=== PATIENT | female | born 1990 | race Caucasian/White ===

== ENCOUNTER 2020-02-04 19:50 | Emergency (ER) | payer SELFPAY ==
[~2020-02-04] VITALS: Ht 144.8 cm; Wt 68.0 kg
[2020-02-04 20:20] VITALS: BP 146/87
--- NOTE | 2020-02-04 20:25 | NUR ---
PT AMBULATED TO LOBBY TO A/W BED. URINE COLLECTED
[2020-02-04 20:31] LABS: BASOPHILS # (AUTO) 0.1 K/uL (0.00-0.22); BASOPHILS % (AUTO) 0.8 % (0.0-2.0); EOSINOPHILS % (AUTO) 0.4 % (0.0-4.0); LYMPHOCYTES # (AUTO) 4.6 K/uL (2.5-16.5); MEAN CORPUSCULAR HEMOGLOBIN 32 pg (27-31); MEAN CORPUSCULAR HGB CONC 33 g/dL (33-37); MEAN CORPUSCULAR VOLUME 96.3 fL (80-94); MONOCYTES # (AUTO) 0.5 K/uL (0.8-1.0); MONOCYTES % (AUTO) 4.3 % (1.7-9.3); NEUTROPHILS # (AUTO) 7.4 K/uL (1.8-7.7); NEUTROPHILS % (AUTO) 58.5 % (42.2-75.2); PLATELET COUNT (AUTO) 314 K/uL (140-450); RED BLOOD CELL COUNT(AUTO) 4.36 MIL/uL (4.20-5.40); RED CELL DISTRIBUTION WIDTH 13.4 % (11.6-13.7); WHITE BLOOD COUNT (AUTO) 12.7 K/uL (4.8-10.8)
--- NOTE | 2020-02-04 20:50 | NUR ---
PT TAKEN TO US VIA W/C
[2020-02-04 21:03] LABS: APPEARANCE,URINE CLEAR (CLEAR); BILIRUBIN,URINE NEGATIVE (NEGATIVE); BLOOD, URINE 3+ (NEGATIVE); COLOR,URINE YELLOW (YELLOW); LEUKOCYTE ESTERASE ,URINE TRACE (NEGATIVE); NITRITE, URINE NEGATIVE (NEGATIVE); UGLUCOSE NEGATIVE (NEGATIVE)
--- NOTE | 2020-02-04 21:33 | NUR ---
PT AMBULATED TO [facility] WITH STEADY GAIT
[2020-02-04 21:46] LABS: ANION GAP 11.4 (8-16); CARBON DIOXIDE 24.5 mmol/L (21-32); CREATININE 0.8 mg/dL (0.6-1.3); POTASSIUM 3.9 mmol/L (3.5-5.1)
--- NOTE | 2020-02-04 22:06 | NUR ---
ERMD BEDSIDE EVALUATING PT
[2020-02-04 22:25] VITALS: BP 146/87
--- NOTE | 2020-02-04 22:25 | NUR ---
29 Y/O FEMALE PRESENTS TO ER WITH C/O VAGINAL BLEEDING, AND BILATERAL LOWER ABDOMINAL PAIN X 3 DAYS. 11/08 PAIN. LMP 11/15/19 12 WEEKS . DENIES TTP TO BILATERAL LOWER ABDOMEN, NO RADIATION TO OTHER REGION OF BODY. DENIES SOB, COUGH, NAUSEA, VOMITING, DIARRHEA. VSS, R/R EQUAL AND UNLABORED. SIDE RAIL X1, BED IN LOW POSITION, WILL CONTINUE TO MONITOR. NKDA DENIES PMH
== END 2020-02-04 22:25 | disposition home or self-care (01) ==
LOC: MED 19:50
DX: O23.41 Unspecified infection of urinary tract in pregnancy, first trimester (principal); O46.8X1 Other antepartum hemorrhage, first trimester
CPT/HCPCS: 36415; 76801; 80048; 81001; 84702; 85025; 86900; 86901; 87086; 93976; 99284; Q0092

== ENCOUNTER 2020-02-07 18:11 | Emergency (ER) | payer SELFPAY ==
[~2020-02-07] VITALS: Ht 144.8 cm; Wt 69.1 kg
[2020-02-07 18:37] VITALS: BP 152/99
--- NOTE | 2020-02-07 18:42 | NUR ---
29 Y/O F C/C VAGINAL BLEEDING SINCE 1600 HOURS TODAY; DARK BLOOD WITH BLOOD CLOTS, NO TISSUE NOTED. PER PT FURTHER COMPLAINTS OF LOWER ABDOMINAL PAIN, 6/10, SHARP SENSATION, NON RADIATING SINCE 1200 HOURS TODAY. PT CURRENTLY 3 MONTHS , FIRST . HAS NOT TAKEN OTC RX. PT NKA. NO HX. NO RX. NO NVD. SIDE RAIL X1.
[2020-02-07 19:03] LABS: BASOPHILS # (AUTO) 0.1 K/uL (0.00-0.22); BASOPHILS % (AUTO) 0.6 % (0.0-2.0); EOSINOPHILS # (AUTO) 0.1 K/uL (0-0.4); EOSINOPHILS % (AUTO) 0.5 % (0.0-4.0); HEMATOCRIT 38.5 % (36-48); LYMPHOCYTES % (AUTO) 35.1 % (20.5-51.1); MEAN CORPUSCULAR HEMOGLOBIN 32 pg (27-31); MEAN CORPUSCULAR HGB CONC 34 g/dL (33-37); MEAN CORPUSCULAR VOLUME 95.2 fL (80-94); MONOCYTES # (AUTO) 0.6 K/uL (0.8-1.0); MONOCYTES % (AUTO) 4.9 % (1.7-9.3); NEUTROPHILS # (AUTO) 6.7 K/uL (1.8-7.7); NEUTROPHILS % (AUTO) 58.9 % (42.2-75.2); PLATELET COUNT (AUTO) 298 K/uL (140-450); RED BLOOD CELL COUNT(AUTO) 4.05 MIL/uL (4.20-5.40); RED CELL DISTRIBUTION WIDTH 13.5 % (11.6-13.7); WHITE BLOOD COUNT (AUTO) 11.4 K/uL (4.8-10.8)
--- NOTE | 2020-02-07 19:22 | NUR ---
REPORT GIVEN TO JANNET GARCIA FOR CONTINUITY OF CARE
[2020-02-07 21:24] VITALS: BP 152/99
== END 2020-02-07 21:24 | disposition home or self-care (01) ==
LOC: MED 18:11
DX: O20.0 Threatened abortion (principal); Z3A.11 11 weeks gestation of pregnancy
CPT/HCPCS: 36415; 84702; 85025; 99283

== ENCOUNTER 2020-06-25 20:10 | Observation (INO) | payer OTHER, SELFPAY ==
[~2020-06-25] VITALS: Ht 149.9 cm; Wt 71.2 kg
[2020-06-25] MEDS ORDERED: PROMETHAZINE 25 MG/ML VIAL IVP PRN (20:40)
[2020-06-25] MEDS ORDERED: ONDANSETRON 4 MG/2 ML VIAL IVP PRN (20:40)
[2020-06-25] MEDS ORDERED: MORPHINE SULFATE 5 MG/ML VIAL IVP PRN (20:40)
[2020-06-25] MEDS ORDERED: NACL 0.9% 1,000 ML IV SCH (20:55)
[2020-06-25] MEDS ORDERED: CITRIC ACID/SODIUM CITRATE 30 ML UDC PO ONE (21:00)
[2020-06-25] MEDS ORDERED: MORPHINE SULFATE 10 MG/ML VIAL ONE (21:21)
[2020-06-25 21:50] LABS: BILIRUBIN,URINE NEGATIVE (NEGATIVE); BLOOD, URINE NEGATIVE (NEGATIVE); COLOR,URINE YELLOW (YELLOW); LEUKOCYTE ESTERASE ,URINE 2+ (NEGATIVE); NITRITE, URINE NEGATIVE (NEGATIVE); UGLUCOSE NEGATIVE (NEGATIVE)
[2020-06-25 21:52] LABS: APPEARANCE,URINE HAZY (CLEAR)
[2020-06-25 22:08] LABS: RBC,URINE NONE SEEN /HPF (0-5)
[2020-06-25] MEDS ORDERED: TERBUTALINE 1 MG/ML VIAL SUBQ SCH (22:40)
[2020-06-25] MEDS ORDERED: TERBUTALINE 1 MG/ML VIAL SUBQ ONE (22:47)
[2020-06-25] MEDS ORDERED: cefTRIAXone 1,000 MG VIAL ONE (22:48)
[2020-06-25 23:21] VITALS: BP 126/67
--- NOTE | 2020-06-26 07:49 | NUR ---
PATIENT HAS BEEN SCREENED AND CATEGORIZED LOW NUTRITION RISK. PATIENT WILL BE SEEN WITHIN 7 DAYS OF ADMISSION. 07/02/2020 RITU TRUJILLO MBA, RD
[2020-06-26] MEDS ORDERED: cefTRIAXone 2,000 MG in DEXTROSE 5% 100 ML IV SCH (09:00)
== END 2020-06-26 10:15 | disposition home or self-care (01) ==
LOC: MFCC 20:10
PROVIDERS: ADMIT Obstetrics & Gynecology; ATTEND Obstetrics & Gynecology
DX: O99.613 Diseases of the digestive system complicating pregnancy, third trimester (principal); Z20.828 Contact with and (suspected) exposure to other viral communicable diseases; O26.893 Other specified pregnancy related conditions, third trimester; R10.11 Right upper quadrant pain; Z3A.32 32 weeks gestation of pregnancy
CPT/HCPCS: 59025; 76705; 81001; 87086; 87426; 96361; 96372; 96374; 96375; G0378; J0696; J2270; J2550; J3105; J7060

== ENCOUNTER 2020-06-27 13:14 | Observation (INO) | payer OTHER ==
[~2020-06-27] VITALS: Ht 149.9 cm; Wt 71.2 kg
[2020-06-27] MEDS ORDERED: LACTATED RINGERS 1,000 ML IV SCH (13:30)
[2020-06-27] MEDS ORDERED: PROMETHAZINE 25 MG/ML VIAL IVP SCH (13:35)
[2020-06-27] MEDS ORDERED: MORPHINE SULFATE 2 MG/ML SYR IVP SCH (13:36)
[2020-06-27] MEDS ORDERED: MORPHINE SULFATE 10 MG/ML VIAL ONE (13:48)
[2020-06-27 14:12] VITALS: BP 132/80
[2020-06-27] MEDS ORDERED: TERBUTALINE 1 MG/ML VIAL SUBQ SCH (15:25)
== END 2020-06-27 17:20 | disposition home or self-care (01) ==
LOC: MFCC 13:14
PROVIDERS: ADMIT Obstetrics & Gynecology; ATTEND Obstetrics & Gynecology
DX: O26.893 Other specified pregnancy related conditions, third trimester (principal); R10.9 Unspecified abdominal pain; Z3A.32 32 weeks gestation of pregnancy
CPT/HCPCS: 59025; 96372; 96374; G0378; J2270; J2550; J3105

== ENCOUNTER 2020-07-12 22:34 | Observation (INO) | payer OTHER ==
[~2020-07-12] VITALS: Ht 149.9 cm; Wt 72.6 kg
[2020-07-12 23:09] VITALS: BP 115/74
[2020-07-12] MEDS ORDERED: CITRIC ACID/SODIUM CITRATE 30 ML UDC PO SCH (23:40)
[2020-07-12] MEDS ORDERED: ALUMINUM HYD/MAG/SIMETHICONE 30 ML UDC PO PRN (23:40)
[2020-07-12] MEDS ORDERED: ALUMINUM HYD/MAG/SIMETHICONE 30 ML UDC ONE (23:43)
[2020-07-13] MEDS ORDERED: CITRIC ACID/SODIUM CITRATE 30 ML UDC ONE (00:19)
== END 2020-07-13 00:40 | disposition home or self-care (01) ==
LOC: MLD 22:34
PROVIDERS: ADMIT Obstetrics & Gynecology; ATTEND Obstetrics & Gynecology
DX: O26.893 Other specified pregnancy related conditions, third trimester (principal); R10.13 Epigastric pain; Z3A.34 34 weeks gestation of pregnancy
CPT/HCPCS: 59025; 81000; G0378

== ENCOUNTER 2020-08-06 20:00 | Inpatient (IN) | payer OTHER, SELFPAY ==
[~2020-08-06] VITALS: Ht 149.9 cm; Wt 70.3 kg
[2020-08-06] MEDS ORDERED: CITRIC ACID/SODIUM CITRATE 30 ML UDC PO SCH (20:40)
[2020-08-06] MEDS ORDERED: MISOPROSTOL 25 MCG TAB VG SCH (20:40)
[2020-08-06] MEDS ORDERED: CITRIC ACID/SODIUM CITRATE 30 ML UDC ONE (20:56)
[2020-08-06 21:21] VITALS: BP 142/83
[2020-08-06] MEDS ORDERED: CARBOPROST 250 MCG/ML AMP IM PRN (21:50)
[2020-08-06] MEDS ORDERED: METHYLERGONOVINE 0.2 MG/ML AMP IM PRN (21:50)
[2020-08-06] MEDS ORDERED: LACTATED RINGERS 1,000 ML IV SCH ×2 (21:55→23:10)
[2020-08-06 22:15] LABS: MAGNESIUM 2.4 mg/dL (1.8-2.4)
[2020-08-06 22:16] LABS: APPEARANCE,URINE CLEAR (CLEAR); BILIRUBIN,URINE NEGATIVE (NEGATIVE); BLOOD, URINE NEGATIVE (NEGATIVE); COLOR,URINE YELLOW (YELLOW); LEUKOCYTE ESTERASE ,URINE TRACE (NEGATIVE); NITRITE, URINE NEGATIVE (NEGATIVE); UGLUCOSE NEGATIVE (NEGATIVE)
[2020-08-06 22:17] LABS: ALBUMIN 2.5 g/dL (3.4-5.0); ANION GAP 12.2 (8-16); CREATININE 0.7 mg/dL (0.6-1.3); POTASSIUM 4.2 mmol/L (3.5-5.1); TOTAL BILIRUBIN 0.5 mg/dL (0.0-1.0)
[2020-08-06 22:18] LABS: HEMOGLOBIN 13.6 g/dL (12.0-16.0)
[2020-08-06 22:21] LABS: BASOPHILS % (AUTO) 0.2 % (0.0-2.0); EOSINOPHILS % (AUTO) 0.3 % (0.0-4.0); HEMATOCRIT 39.6 % (36-48); LYMPHOCYTES # (AUTO) 3.3 K/uL (2.5-16.5); MEAN CORPUSCULAR HEMOGLOBIN 33 pg (27-31); MEAN CORPUSCULAR HGB CONC 34 g/dL (33-37); MEAN CORPUSCULAR VOLUME 97.5 fL (80-94); MONOCYTES # (AUTO) 0.8 K/uL (0.8-1.0); NEUTROPHILS # (AUTO) 8.6 K/uL (1.8-7.7); NEUTROPHILS % (AUTO) 67.5 % (42.2-75.2); PLATELET COUNT (AUTO) 227 K/uL (140-450); RED BLOOD CELL COUNT(AUTO) 4.06 MIL/uL (4.20-5.40); RED CELL DISTRIBUTION WIDTH 13.5 % (11.6-13.7); WHITE BLOOD COUNT (AUTO) 12.7 K/uL (4.8-10.8)
[2020-08-06 22:57] LABS: PROTHROMBIN TIME 9.3 secs (10.8-13.4)
[2020-08-07 00:13] LABS: RBC,URINE 0-5 /HPF (0-5)
[2020-08-07] MEDS: MISOPROSTOL 25 MCG TAB VG SCH ×3 (02:07→12:32)
[2020-08-07] MEDS ORDERED: MAG SULF 2000 MG/WATER PREMIX 50 ML IV SCH (02:25)
[2020-08-07] MEDS ORDERED: MAG SULF 20 GM/H2O PREMIX DRIP 500 ML IV ONE (02:32)
[2020-08-07] MEDS ORDERED: MAG SULF 2000 MG/WATER PREMIX 50 ML IV ONE ×2 (02:32→02:36)
--- NOTE | 2020-08-07 07:17 | NUR ---
PATIENT HAS BEEN SCREENED AND CATEGORIZED LOW NUTRITION RISK. PATIENT WILL BE SEEN WITHIN 7 DAYS OF ADMISSION. 08/13/20 RITU TRUJILLO MBA, RD
[2020-08-07] MEDS ORDERED: AMPICILLIN 2,000 MG VIAL ONE (09:46)
[2020-08-07] MEDS ORDERED: AMPICILLIN 2,000 MG in NACL 0.9% MINI-BAG PLUS 100 ML IV SCH (10:00)
[2020-08-07] MEDS ORDERED: AMPICILLIN 1,000 MG VIAL ONE ×3 (13:53→22:45)
[2020-08-07] MEDS: AMPICILLIN 1,000 MG in NACL 0.9% MINI-BAG PLUS 50 ML IV SCH ×2 (13:58→17:56)
[2020-08-07] MEDS: MAG SULF 20 GM/H2O PREMIX DRIP 500 ML IV SCH (14:41)
[2020-08-07] MEDS ORDERED: OXYTOCIN 20 UNITS in LACTATED RINGERS 1,000 ML IV SCH (16:30)
[2020-08-07] MEDS ORDERED: ROPIVACAINE 0.2%/NS PREMIX 0 ML EPI ONE (16:41)
[2020-08-07] MEDS ORDERED: OXYTOCIN 20 UNITS/LR PREMIX 1,000 ML IV ONE (16:51)
[2020-08-07] MEDS ORDERED: ROPIVACAINE 0.2%/NS PREMIX 200 ML EPI ONE (17:01)
[2020-08-08] MEDS: MAG SULF 20 GM/H2O PREMIX DRIP 500 ML IV SCH (01:17)
[2020-08-08] MEDS ORDERED: AMPICILLIN 1,000 MG VIAL ONE ×4 (02:43→10:41)
[2020-08-08] MEDS: AMPICILLIN 1,000 MG in NACL 0.9% MINI-BAG PLUS 50 ML IV SCH ×2 (06:53→10:47)
[2020-08-08] MEDS ORDERED: ROPIVACAINE 0.2%/NS PREMIX 200 ML EPI ONE (07:04)
[2020-08-08] MEDS ORDERED: LABETALOL 100 MG TAB PO SCH (12:00)
[2020-08-08] MEDS ORDERED: LABETALOL 100 MG TAB ONE (12:06)
[2020-08-08] MEDS ORDERED: MISOPROSTOL 200 MCG TAB ONE (14:17)
[2020-08-08] MEDS ORDERED: OXYTOCIN 20 UNITS/LR PREMIX 1,000 ML IV ONE (14:18)
[2020-08-08] MEDS ORDERED: MISOPROSTOL 100 MCG TAB RC SCH (14:30)
[2020-08-08] MEDS ORDERED: TEMAZEPAM 15 MG CAP PO PRN (16:55)
[2020-08-08] MEDS ORDERED: oxyCODONE/APAP 5/325 MG 1 TAB TAB PO PRN (16:55)
[2020-08-08] MEDS ORDERED: MEASLES, MUMPS, AND RUBELLA 1 VIAL SQVAC PRN (16:55)
[2020-08-08] MEDS ORDERED: BENZOCAINE/MENTHOL 20%-0.5% 60 GM CAN TP PRN (16:55)
[2020-08-08] MEDS ORDERED: DOCUSATE SOD/SENNA 50/8.6 MG 1 TAB PO SCH (21:00)
[2020-08-09] MEDS: IBUPROFEN 800 MG TAB PO PRN ×2 (01:47→13:16)
[2020-08-09] MEDS ORDERED: CITRIC ACID/SODIUM CITRATE 30 ML UDC PO SCH (06:05)
[2020-08-09] MEDS ORDERED: CITRIC ACID/SODIUM CITRATE 30 ML UDC ONE (06:08)
[2020-08-09 06:39] LABS: HEMATOCRIT 29.8 % (36-48); HEMOGLOBIN 10.1 g/dL (12.0-16.0)
== END 2020-08-09 19:48 | disposition home or self-care (01) | DRG 560 ==
LOC: OBSVTOIN 20:00 → MLD 20:00 → MFCC 20:43 → MLD 20:51 → MFCC 08-08 16:35
PROVIDERS: ADMIT Obstetrics & Gynecology; ATTEND Obstetrics & Gynecology
PROC: 10D07Z6 Extraction of Products of Conception, Vacuum, Via Natural or Artificial Opening (ICD-10-PCS; principal; 2020-08-08)
PROC: 0W8NXZZ Division of Female Perineum, External Approach (ICD-10-PCS; 2020-08-08)
DX: O14.94 Unspecified pre-eclampsia, complicating childbirth (principal); Z3A.37 37 weeks gestation of pregnancy; Z37.0 Single live birth; O24.429 Gestational diabetes mellitus in childbirth, unspecified control; O66.0 Obstructed labor due to shoulder dystocia; Z20.822 Contact with and (suspected) exposure to COVID-19
CPT/HCPCS: 36415; 51702; 59200; 76815; 80053; 81001; 82310; 82570; 82948; 83735; 84550; 85018; 85025; 85384; 85610; 85730; 86592; 86886; 86900; 86901; 87086; J0290; J2590; J2795; J3475; J7120

== ENCOUNTER 2021-05-10 22:10 | Observation (INO) | payer OTHER, SELFPAY ==
[~2021-05-10] VITALS: Ht 149.9 cm; Wt 70.3 kg
[2021-05-10 23:20] VITALS: BP 132/75
== END 2021-05-10 23:20 | disposition home or self-care (01) ==
LOC: MLD 22:10
PROVIDERS: ADMIT Obstetrics & Gynecology; ATTEND Obstetrics & Gynecology
DX: O26.892 Other specified pregnancy related conditions, second trimester (principal); R10.9 Unspecified abdominal pain; O99.891 Other specified diseases and conditions complicating pregnancy; M54.9 Dorsalgia, unspecified; Z3A.22 22 weeks gestation of pregnancy; Z91.040 Latex allergy status
CPT/HCPCS: 59025; 81000; G0378; G0379

== ENCOUNTER 2021-08-16 17:20 | Observation (INO) | payer OTHER, SELFPAY ==
[~2021-08-16] VITALS: Ht 149.9 cm; Wt 72.6 kg
[2021-08-16] MEDS ORDERED: INSULIN (18:03)
[2021-08-16] MEDS ORDERED: ASPI-1822 PO (18:04)
== END 2021-08-16 19:02 | disposition home or self-care (01) ==
LOC: MFCC 17:20 → MLD 17:50
PROVIDERS: ADMIT Obstetrics & Gynecology; ATTEND Obstetrics & Gynecology
DX: O26.893 Other specified pregnancy related conditions, third trimester (principal); R10.9 Unspecified abdominal pain; Z20.822 Contact with and (suspected) exposure to COVID-19; O24.419 Gestational diabetes mellitus in pregnancy, unspecified control; Z3A.36 36 weeks gestation of pregnancy; Z91.040 Latex allergy status
CPT/HCPCS: 87426; G0378; 59025; 81000

== ENCOUNTER 2021-09-01 05:09 | Inpatient (IN) | payer OTHER, SELFPAY ==
[~2021-09-01] VITALS: Ht 144.8 cm; Wt 75.3 kg
[~2021-09-01 05:09] MED LIST: ASPI-1822 PO; INSULIN
[2021-09-01] MEDS ORDERED: LACTATED RINGERS 1,000 ML IV SCH (05:35)
[2021-09-01] MEDS ORDERED: CITRIC ACID/SODIUM CITRATE 30 ML UDC PO ONE (05:35)
[2021-09-01 05:56] VITALS: BP 121/83
[2021-09-01 06:01] LABS: BASOPHILS # (AUTO) 0.1 K/uL (0.00-0.22); BASOPHILS % (AUTO) 0.8 % (0.0-2.0); EOSINOPHILS # (AUTO) 0.1 K/uL (0-0.4); EOSINOPHILS % (AUTO) 0.6 % (0.0-4.0); HEMATOCRIT 36.7 % (36-48); HEMOGLOBIN 12.6 g/dL (12.0-16.0); LYMPHOCYTES # (AUTO) 3.4 K/uL (2.5-16.5); LYMPHOCYTES % (AUTO) 33.6 % (20.5-51.1); MEAN CORPUSCULAR HEMOGLOBIN 32 pg (27-31); MEAN CORPUSCULAR HGB CONC 34 g/dL (33-37); MEAN CORPUSCULAR VOLUME 92.4 fL (80-94); MONOCYTES # (AUTO) 0.6 K/uL (0.8-1.0); MONOCYTES % (AUTO) 5.6 % (1.7-9.3); NEUTROPHILS % (AUTO) 59.4 % (42.2-75.2); PLATELET COUNT (AUTO) 277 K/uL (140-450); RED BLOOD CELL COUNT(AUTO) 3.97 MIL/uL (4.20-5.40); RED CELL DISTRIBUTION WIDTH 14.3 % (11.6-13.7)
[2021-09-01 06:21] LABS: APPEARANCE,URINE CLEAR (CLEAR); BILIRUBIN,URINE NEGATIVE (NEGATIVE); BLOOD, URINE NEGATIVE (NEGATIVE); COLOR,URINE YELLOW (YELLOW); LEUKOCYTE ESTERASE ,URINE 1+ (NEGATIVE); NITRITE, URINE NEGATIVE (NEGATIVE); PH,URINE 6.5 (5.0-9.0); UGLUCOSE NEGATIVE (NEGATIVE)
[2021-09-01 06:33] LABS: RBC,URINE 0-5 /HPF (0-5)
[2021-09-01 06:47] LABS: ALBUMIN 2.3 g/dL (3.4-5.0); ANION GAP 16.1 (8-16); CARBON DIOXIDE 22.1 mmol/L (21-32); CREATININE 0.5 mg/dL (0.6-1.3); POTASSIUM 4.2 mmol/L (3.5-5.1); TOTAL BILIRUBIN 0.2 mg/dL (0.0-1.0)
[2021-09-01] MEDS ORDERED: MORPHINE PRES FREE 10 MG/10 ML AMP IV ONE (07:31)
--- NOTE | 2021-09-01 09:34 | NUR ---
PATIENT HAS BEEN SCREENED AND CATEGORIZED LOW NUTRITION RISK. PATIENT WILL BE SEEN WITHIN 7 DAYS OF ADMISSION. 09/07/[address]
[2021-09-01] MEDS ORDERED: METOCLOPRAMIDE 10 MG/2 ML INJ VIAL ONE (11:47)
[2021-09-01] MEDS ORDERED: diphenhydrAMINE 50 MG/ML VIAL IVP PRN (12:05)
[2021-09-01] MEDS ORDERED: NALOXONE 0.4 MG/ML VIAL IVP PRN ×2 (12:05)
[2021-09-01] MEDS ORDERED: KETOROLAC 30 MG/ML VIAL IVP PRN (12:05)
[2021-09-01] MEDS ORDERED: OXYTOCIN 20 UNITS in LACTATED RINGERS 1,000 ML IV SCH (12:05)
[2021-09-01] MEDS ORDERED: ONDANSETRON 4 MG/2 ML VIAL IVP PRN (12:05)
[2021-09-01] MEDS ORDERED: BENZOCAINE/MENTHOL 20%-0.5% 60 GM CAN TP PRN (12:55)
[2021-09-01] MEDS ORDERED: OXYTOCIN 10 UNITS/ML VIAL IM PRN (12:55)
[2021-09-01] MEDS ORDERED: MEASLES, MUMPS, AND RUBELLA 1 VIAL SQVAC ONE (12:55)
[2021-09-01] MEDS ORDERED: METHYLERGONOVINE 0.2 MG/ML AMP IM PRN (12:55)
[2021-09-01] MEDS ORDERED: METHYLERGONOVINE 0.2 MG TAB PO PRN (12:55)
[2021-09-01] MEDS ORDERED: OXYTOCIN 20 UNITS/LR PREMIX 1,000 ML IV ONE ×2 (13:16→20:22)
[2021-09-02] MEDS ORDERED: HYDROmorphone 1 MG/ML AMP IVP SCH (02:00)
[2021-09-02] MEDS ORDERED: OXYTOCIN 20 UNITS/LR PREMIX 1,000 ML IV ONE (03:35)
[2021-09-02 09:22] LABS: BASOPHILS % (AUTO) 0.1 % (0.0-2.0); EOSINOPHILS % (AUTO) 0.3 % (0.0-4.0); HEMATOCRIT 27.6 % (36-48); HEMOGLOBIN 9.5 g/dL (12.0-16.0); LYMPHOCYTES # (AUTO) 2.5 K/uL (2.5-16.5); LYMPHOCYTES % (AUTO) 20.9 % (20.5-51.1); MEAN CORPUSCULAR HEMOGLOBIN 32 pg (27-31); MEAN CORPUSCULAR HGB CONC 35 g/dL (33-37); MONOCYTES # (AUTO) 0.7 K/uL (0.8-1.0); MONOCYTES % (AUTO) 5.7 % (1.7-9.3); NEUTROPHILS # (AUTO) 8.7 K/uL (1.8-7.7); PLATELET COUNT (AUTO) 221 K/uL (140-450); RED BLOOD CELL COUNT(AUTO) 2.96 MIL/uL (4.20-5.40); RED CELL DISTRIBUTION WIDTH 14.4 % (11.6-13.7)
[2021-09-02 10:56] LABS: HEPATITIS B SURFACE ANTIGEN NEGATIVE (NEGATIVE)
[2021-09-02] MEDS: IBUPROFEN 800 MG TAB PO PRN (12:49)
[2021-09-02] MEDS ORDERED: POLYETHYLENE GLYCOL 17 GM/PKT PO PRN (14:50)
[2021-09-02] MEDS: DOCUSATE SODIUM 100 MG GELCAP PO PRN (18:15)
[2021-09-02] MEDS: oxyCODONE/APAP 5/325 MG 1 TAB TAB PO PRN (20:34)
[2021-09-02] MEDS ORDERED: CAMERA MC ONE (22:29)
[2021-09-03] MEDS: oxyCODONE/APAP 5/325 MG 1 TAB TAB PO PRN (04:24)
[2021-09-03] MEDS: DOCUSATE SODIUM 100 MG GELCAP PO PRN (08:35)
[2021-09-03] MEDS: IBUPROFEN 800 MG TAB PO PRN (14:08)
== END 2021-09-03 18:00 | disposition home or self-care (01) | DRG 540 ==
LOC: MLD 05:09 → MFCC 14:15
PROVIDERS: ADMIT Obstetrics & Gynecology; ATTEND Obstetrics & Gynecology
PROC: 10D00Z1 Extraction of Products of Conception, Low, Open Approach (ICD-10-PCS; principal; 2021-09-03)
DX: O36.63X0 Maternal care for excessive fetal growth, third trimester, not applicable or unspecified (principal); D62 Acute posthemorrhagic anemia; O24.429 Gestational diabetes mellitus in childbirth, unspecified control; Z20.822 Contact with and (suspected) exposure to COVID-19; Z37.0 Single live birth; Z3A.39 39 weeks gestation of pregnancy; O99.02 Anemia complicating childbirth
CPT/HCPCS: 36415; 51702; 80053; 81001; 82948; 85025; 86592; 86762; 86886; 86900; 86901; 87086; 87340; J0690; J1170; J1885; J2270; J2590; J2765; J7060; J7120

== ENCOUNTER 2023-03-22 02:42 | Inpatient (IN) | payer OTHER ==
[~2023-03-22] VITALS: Ht 144.8 cm; Wt 70.8 kg
[~2023-03-22 02:42] MED LIST changes: -INSULIN
[2023-03-22 03:00] VITALS: PULSE 80; RESP 16; TEMP 96.5; O2SAT 99
[2023-03-22] MEDS ORDERED: ONDANSETRON 4 MG/2 ML VIAL IVP ONE ×2 (04:30→06:25)
[2023-03-22] MEDS ORDERED: FAMOTIDINE 20 MG/2 ML VIAL IVP ONE (04:30)
[2023-03-22] MEDS ORDERED: NACL 0.9% 1,000 ML IV SCH (04:30)
[2023-03-22 05:50] LABS: APPEARANCE,URINE CLEAR (CLEAR); BILIRUBIN,URINE NEGATIVE (NEGATIVE); BLOOD, URINE 2+ (NEGATIVE); COLOR,URINE YELLOW (YELLOW); LEUKOCYTE ESTERASE ,URINE NEGATIVE (NEGATIVE); NITRITE, URINE NEGATIVE (NEGATIVE); PROTEIN,URINE NEGATIVE (NEGATIVE); UGLUCOSE 1+ (NEGATIVE); UROBILINOGEN,URINE 0.2 EU/dL (0.2 - 1)
[2023-03-22] MEDS ORDERED: MORPHINE SULFATE 4 MG/ML SYR IVP ONE (05:55)
[2023-03-22 05:57] LABS: BACTERIA,URINE 10-30 (MOD) /HPF (None Seen); MUCUS,URINE 1+ /LPF (None Seen); SQUAMOUS EPITHELIAL CELL,UR 0-3 (FEW) /LPF (0-3 (FEW)); WBC,URINE 0-5 /HPF (0-5)
[2023-03-22 06:04] LABS: BASOPHILS # (AUTO) 0.1 K/uL (0.00-0.22); BASOPHILS % (AUTO) 0.5 % (0.0-2.0); HEMOGLOBIN 14.3 g/dL (12.0-16.0); LYMPHOCYTES # (AUTO) 1.7 K/uL (2.5-16.5); LYMPHOCYTES % (AUTO) 10.2 % (20.5-51.1); MEAN CORPUSCULAR HEMOGLOBIN 32 pg (27-31); MEAN CORPUSCULAR HGB CONC 34 g/dL (33-37); MEAN CORPUSCULAR VOLUME 93.3 fL (80-94); MONOCYTES # (AUTO) 0.3 K/uL (0.8-1.0); MONOCYTES % (AUTO) 1.8 % (1.7-9.3); NEUTROPHILS # (AUTO) 14.5 K/uL (1.8-7.7); NEUTROPHILS % (AUTO) 87.5 % (42.2-75.2); PLATELET COUNT (AUTO) 271 K/uL (140-450); RED CELL DISTRIBUTION WIDTH 13.5 % (11.6-13.7); WHITE BLOOD COUNT (AUTO) 16.6 K/uL (4.8-10.8)
[2023-03-22 06:09] LABS: AMPHETAMINE, URINE NEGATIVE ng/ml (NEG <=1000); BARBITURATE, URINE NEGATIVE ng/ml (NEG <=200); BENZODIAZEPINE, URINE NEGATIVE ng/mL (NEG <=200); CANNABINOID, URINE NEGATIVE ng/mL (NEG <=50); COCAINE, URINE NEGATIVE ng/mL (NEG <=300); OPIATE, URINE NEGATIVE ng/mL (NEG <=2000); PHENCYCLIDINE SCREEN,URINE NEGATIVE ng/mL (NEG <=25)
[2023-03-22 06:17] LABS: SODIUM SERUM 136 mmol/L (136-145)
[2023-03-22 06:18] LABS: ALANINE AMINOTRANSFERASE 52 U/L (12-78); ALKALINE PHOSPHATASE 119 U/L (50-136); ANION GAP 16.6 (8-16); ASPARTATE AMINOTRANSFERASE 30 U/L (15-37); CALCIUM 7.9 mg/dL (8.5-10.1); CARBON DIOXIDE 22.3 mmol/L (21-32); CHLORIDE 101 mmol/L (98-107); CREATININE 0.8 mg/dL (0.6-1.3); GFR ARICAN-AMERICAN 106 mL/min (>90); GFR NON ARICAN-AMERICAN 88 mL/min (>90); GLUCOSE 169 mg/dL (74-106); POTASSIUM 3.9 mmol/L (3.5-5.1); TOTAL BILIRUBIN 0.4 mg/dL (0.0-1.0); TOTAL PROTEIN, SERUM 7.9 g/dL (6.4-8.2); UREA NITROGEN, BLOOD 9 mg/dL (7-18)
[2023-03-22 06:19] LABS: ALBUMIN 3.7 g/dL (3.4-5.0); CREATINE KINASE, TOTAL 91 U/L (26-192)
[2023-03-22 06:26] LABS: LACTIC ACID 3.5 mmol/L (0.4-2.0)
[2023-03-22] MEDS ORDERED: NACL 0.9% 1,000 ML IV ONE (06:50)
[2023-03-22] MEDS ORDERED: KETOROLAC 30 MG/ML VIAL IVP ONE (07:25)
[2023-03-22] MEDS ORDERED: ACETAMINOPHEN 325 MG TAB PO PRN (08:20)
[2023-03-22] MEDS ORDERED: HYDROcodone/APAP 5/325 MG 1 TAB TAB PO PRN (08:20)
[2023-03-22] MEDS ORDERED: LORazepam 1 MG TAB PO PRN (08:20)
[2023-03-22] MEDS ORDERED: ONDANSETRON 4 MG/2 ML VIAL IVP PRN (08:20)
[2023-03-22] MEDS ORDERED: ZOLPIDEM 5 MG TAB PO PRN (08:20)
[2023-03-22] MEDS: DOCUSATE SODIUM 100 MG GELCAP PO SCH (09:00)
[2023-03-22 12:52] VITALS: O2SAT 97
[2023-03-22] MEDS: HYDROmorphone 1 MG/ML AMP IVP PRN ×2 (13:00→21:21)
[2023-03-22] MEDS: DEXT 5% /NACL 0.9% 1,000 ML IV SCH ×2 (13:04→20:50)
[2023-03-22] MEDS ORDERED: PIPERACILLIN/TAZOBACTAM 2.25 GM VIAL IV ONE (13:30)
[2023-03-22] MEDS: PIPERACILLIN/TAZOBACTAM 2.25 GM in DEXTROSE 5% 50 ML IV SCH ×2 (13:57→21:18)
[2023-03-22 17:00] VITALS: BP 137/90; PULSE 96; RESP 15; RESP 16; TEMP 98.3; O2SAT 96; O2SAT 98
[2023-03-22 20:00] VITALS: BP 135/86; PULSE 106; RESP 16; TEMP 97.8; O2SAT 96
[2023-03-23] MEDS: PIPERACILLIN/TAZOBACTAM 2.25 GM in DEXTROSE 5% 50 ML IV SCH ×3 (05:59→21:15)
[2023-03-23 06:43] LABS: BASOPHILS % (AUTO) 0.2 % (0.0-2.0); EOSINOPHILS % (AUTO) 0.1 % (0.0-4.0); HEMATOCRIT 38.6 % (36-48); HEMOGLOBIN 13.1 g/dL (12.0-16.0); LYMPHOCYTES # (AUTO) 3.6 K/uL (2.5-16.5); LYMPHOCYTES % (AUTO) 24.8 % (20.5-51.1); MEAN CORPUSCULAR HEMOGLOBIN 32 pg (27-31); MEAN CORPUSCULAR HGB CONC 34 g/dL (33-37); MEAN CORPUSCULAR VOLUME 93.8 fL (80-94); MONOCYTES # (AUTO) 0.9 K/uL (0.8-1.0); MONOCYTES % (AUTO) 6.2 % (1.7-9.3); NEUTROPHILS % (AUTO) 68.7 % (42.2-75.2); PLATELET COUNT (AUTO) 249 K/uL (140-450); RED BLOOD CELL COUNT(AUTO) 4.11 MIL/uL (4.20-5.40); RED CELL DISTRIBUTION WIDTH 13.6 % (11.6-13.7); WHITE BLOOD COUNT (AUTO) 14.6 K/uL (4.8-10.8)
[2023-03-23 06:53] LABS: ANION GAP 13.8 (8-16); CALCIUM 8.1 mg/dL (8.5-10.1); CARBON DIOXIDE 25.5 mmol/L (21-32); CREATININE 0.8 mg/dL (0.6-1.3); MAGNESIUM 2.2 mg/dL (1.8-2.4); POTASSIUM 3.3 mmol/L (3.5-5.1); TOTAL BILIRUBIN 0.7 mg/dL (0.0-1.0); TOTAL PROTEIN, SERUM 6.7 g/dL (6.4-8.2)
[2023-03-23 08:00] VITALS: PULSE 106; RESP 16; O2SAT 96
[2023-03-23] MEDS ORDERED: ONDANSETRON 4 MG/2 ML VIAL ONE ×2 (08:15→09:07)
[2023-03-23] MEDS ORDERED: DESFLURANE 240 ML BTL INH ONE (08:15)
[2023-03-23] MEDS ORDERED: fentaNYL citrate 0.05 MG/ML - 50mL vial IV ONE (08:15)
[2023-03-23] MEDS ORDERED: HYDROmorphone PFS 2 MG/ML SYR ONE ×3 (08:15→10:37)
[2023-03-23] MEDS ORDERED: PROPOFOL 200 MG/20 ML VIAL IV ONE (08:15)
[2023-03-23] MEDS ORDERED: DEXAMETHASONE 4 MG/ML VIAL ONE (08:15)
[2023-03-23] MEDS ORDERED: KETOROLAC 30 MG/ML VIAL ONE ×2 (08:15→09:07)
[2023-03-23] MEDS ORDERED: LIDOCAINE/EPI MPF 1%1:200000 30 ML VIAL INJ ONE (08:17)
[2023-03-23] MEDS ORDERED: BUPIVACAINE-MPF 0.25% 30 ML VIAL INJ ONE (08:17)
[2023-03-23] MEDS ORDERED: fentaNYL citrate 0.05 MG/ML VIAL ONE (08:34)
[2023-03-23] MEDS ORDERED: HYDROmorphone 1 MG/ML AMP IVP PRN ×2 (08:40→08:45)
[2023-03-23] MEDS ORDERED: ONDANSETRON 4 MG/2 ML VIAL IVP PRN (08:45)
[2023-03-23] MEDS ORDERED: NEOSTIGMINE 1:1000 10 MG/10 ML VIAL ONE (09:19)
[2023-03-23] MEDS ORDERED: GLYCOPYRROLATE 0.2 MG/ML VIAL ONE ×2 (09:19)
[2023-03-23] MEDS: DEXT 5% /NACL 0.9% 1,000 ML IV SCH (12:58)
[2023-03-23 16:00] VITALS: BP 124/81; PULSE 88; RESP 16; TEMP 98; O2SAT 95
[2023-03-23 20:00] VITALS: PULSE 86; RESP 18; O2SAT 97
[2023-03-24] MEDS: DEXT 5% /NACL 0.9% 1,000 ML IV SCH ×2 (02:19→10:20)
[2023-03-24] MEDS: HYDROcodone/APAP 5/325 MG 1 TAB TAB PO PRN ×2 (04:02→08:31)
[2023-03-24 04:30] VITALS: BP 130/82; PULSE 75; RESP 18; TEMP 98.3; O2SAT 96
[2023-03-24] MEDS: PIPERACILLIN/TAZOBACTAM 2.25 GM in DEXTROSE 5% 50 ML IV SCH ×2 (06:14→12:30)
[2023-03-24 06:40] LABS: BASOPHILS % (AUTO) 0.1 % (0.0-2.0); HEMATOCRIT 35.3 % (36-48); HEMOGLOBIN 11.8 g/dL (12.0-16.0); LYMPHOCYTES # (AUTO) 3.5 K/uL (2.5-16.5); LYMPHOCYTES % (AUTO) 25.1 % (20.5-51.1); MEAN CORPUSCULAR HEMOGLOBIN 31 pg (27-31); MEAN CORPUSCULAR HGB CONC 34 g/dL (33-37); MEAN CORPUSCULAR VOLUME 93.5 fL (80-94); MONOCYTES # (AUTO) 0.9 K/uL (0.8-1.0); MONOCYTES % (AUTO) 6.5 % (1.7-9.3); NEUTROPHILS # (AUTO) 9.5 K/uL (1.8-7.7); NEUTROPHILS % (AUTO) 68.3 % (42.2-75.2); PLATELET COUNT (AUTO) 228 K/uL (140-450); RED BLOOD CELL COUNT(AUTO) 3.77 MIL/uL (4.20-5.40); RED CELL DISTRIBUTION WIDTH 13.6 % (11.6-13.7); WHITE BLOOD COUNT (AUTO) 13.9 K/uL (4.8-10.8)
[2023-03-24 07:08] LABS: ALBUMIN 2.6 g/dL (3.4-5.0); ANION GAP 9.7 (8-16); CALCIUM 7.8 mg/dL (8.5-10.1); CARBON DIOXIDE 26.8 mmol/L (21-32); CREATININE 0.8 mg/dL (0.6-1.3); MAGNESIUM 2.1 mg/dL (1.8-2.4); POTASSIUM 3.5 mmol/L (3.5-5.1); TOTAL BILIRUBIN 0.3 mg/dL (0.0-1.0)
[2023-03-24] MEDS: DOCUSATE SODIUM 100 MG GELCAP PO SCH (08:33)
[2023-03-24 09:26] VITALS: PULSE 89; RESP 18; O2SAT 96
[2023-03-24] MEDS ORDERED: ACET-9535 PO (09:50)
== END 2023-03-24 13:50 | disposition home or self-care (01) | DRG 710 ==
LOC: MED 02:42 → MTU 08:21
PROVIDERS: ADMIT Hospitalist; ATTEND Hospitalist
PROC: 0DNU4ZZ Release Omentum, Percutaneous Endoscopic Approach (ICD-10-PCS; 2023-03-23)
PROC: 0FT44ZZ Resection of Gallbladder, Percutaneous Endoscopic Approach (ICD-10-PCS; principal; 2023-03-23 08:00)
DX: A41.50 Gram-negative sepsis, unspecified (principal); E87.20 Acidosis, unspecified; K81.0 Acute cholecystitis; R71.0 Precipitous drop in hematocrit; R16.0 Hepatomegaly, not elsewhere classified
CPT/HCPCS: 36415; 71045; 76705; 80053; 80305; 81001; 82374; 82550; 83605; 83690; 83735; 84484; 85025; 87040; 87081; 87086; 88304; 93005; 96361; 96365; 96375; 96376; 99285; J0694; J1100; J1170; J1885; J2001; J2270; J2405; J2543; J2704; J2710; J3010; J3490; J7060; J7120; Q0092; Q9967

== ENCOUNTER 2024-01-12 19:59 | Inpatient (IN) | payer OTHER ==
[~2024-01-12] VITALS: Ht 144.8 cm; Wt 78.9 kg
[~2024-01-12 19:59] MED LIST changes: +ACET-9535 PO; -ASPI-1822 PO
[2024-01-12 20:27] VITALS: BP 144/85; PULSE 83; RESP 17; TEMP 98.3
[2024-01-12 21:07] LABS: BASOPHILS % (AUTO) 0.3 % (0.0-2.0); EOSINOPHILS % (AUTO) 0.2 % (0.0-4.0); HEMATOCRIT 38.9 % (36-48); HEMOGLOBIN 13.3 g/dL (12.0-16.0); LYMPHOCYTES # (AUTO) 3.1 K/uL (2.5-16.5); LYMPHOCYTES % (AUTO) 32.4 % (20.5-51.1); MEAN CORPUSCULAR HEMOGLOBIN 33 pg (27-31); MEAN CORPUSCULAR HGB CONC 34 g/dL (33-37); MEAN CORPUSCULAR VOLUME 95.3 fL (80-94); MONOCYTES # (AUTO) 0.4 K/uL (0.8-1.0); MONOCYTES % (AUTO) 4.7 % (1.7-9.3); NEUTROPHILS % (AUTO) 62.4 % (42.2-75.2); PLATELET COUNT (AUTO) 194 K/uL (140-450); RED BLOOD CELL COUNT(AUTO) 4.08 MIL/uL (4.20-5.40); RED CELL DISTRIBUTION WIDTH 14.3 % (11.6-13.7); WHITE BLOOD COUNT (AUTO) 9.6 K/uL (4.8-10.8)
[2024-01-12 21:11] LABS: APPEARANCE,URINE TURBID (CLEAR); BILIRUBIN,URINE NEGATIVE (NEGATIVE); BLOOD, URINE TRACE-I (NEGATIVE); COLOR,URINE YELLOW (YELLOW); LEUKOCYTE ESTERASE ,URINE 3+ (NEGATIVE); NITRITE, URINE NEGATIVE (NEGATIVE); PROTEIN,URINE TRACE (NEGATIVE); UGLUCOSE NEGATIVE (NEGATIVE); UROBILINOGEN,URINE 0.2 EU/dL (0.2 - 1)
[2024-01-12 21:20] LABS: BACTERIA,URINE 10-30 (MOD) /HPF (None Seen); MUCUS,URINE 1+ /LPF (None Seen); SQUAMOUS EPITHELIAL CELL,UR 4-10 (MOD) /LPF (0-3 (FEW))
[2024-01-12 21:25] LABS: ALBUMIN 2.2 g/dL (3.4-5.0); ANION GAP 16.2 (8-16); CARBON DIOXIDE 20.6 mmol/L (21-32); CREATININE 0.8 mg/dL (0.6-1.3); POTASSIUM 3.8 mmol/L (3.5-5.1); TOTAL BILIRUBIN 0.2 mg/dL (0.0-1.0); TOTAL PROTEIN, SERUM 5.8 g/dL (6.4-8.2); URIC ACID 5.6 mg/dL (2.6-7.2)
[2024-01-12 21:29] LABS: URINE TOTAL PROTEIN 52.3 mg/dL (0-12); URINE TPRO CREAT RATIO 0.7 (0-0.20)
[2024-01-12 21:42] LABS: INR 0.95 (0.8-1.2); PARTIAL THROMBOPLASTIN TIME 24.9 secs (22-35.6)
[2024-01-12] MEDS ORDERED: LABETALOL 20 MG/4 ML VIAL IVP ONE (22:34)
[2024-01-12] MEDS: LACTATED RINGERS 1,000 ML IV SCH (22:50)
[2024-01-12] MEDS: LABETALOL 20 MG/4 ML VIAL IVP ONE (22:54)
[2024-01-12] MEDS: MAG SULF 2000 MG/WATER PREMIX 100 ML IV ONE (23:06)
[2024-01-12] MEDS: MAG SULF 20 GM/H2O PREMIX DRIP 500 ML IV PRN (23:31)
[2024-01-13] MEDS ORDERED: PRETAB PO (02:14)
[2024-01-13] MEDS ORDERED: MORPHINE PRES FREE 10 MG/10 ML AMP IV ONE (07:18)
[2024-01-13] MEDS: CITRIC ACID/SODIUM CITRATE 30 ML UDC PO ONE (07:19)
[2024-01-13] MEDS: ceFAZolin 2,000 MG VIAL ONE (07:36)
[2024-01-13] MEDS ORDERED: NALBUPHINE 10 MG/ML AMP IVP PRN (08:50)
[2024-01-13] MEDS ORDERED: ONDANSETRON 4 MG/2 ML VIAL IVP PRN (08:50)
[2024-01-13] MEDS ORDERED: diphenhydrAMINE 50 MG/ML VIAL IVP PRN (08:50)
[2024-01-13] MEDS ORDERED: NALOXONE 0.4 MG/ML VIAL IVP PRN ×3 (08:50)
[2024-01-13] MEDS ORDERED: MEDS-TO-BEDS MC SCH (09:00)
[2024-01-13] MEDS: OXYTOCIN/0.9 % SODIUM CHLORIDE 500 ML IV ONE (09:21)
[2024-01-13] MEDS ORDERED: MEASLES, MUMPS, AND RUBELLA 1 VIAL SQVAC ONE (11:10)
[2024-01-13] MEDS ORDERED: METHYLERGONOVINE 0.2 MG/ML AMP IM PRN ×2 (11:10)
[2024-01-13] MEDS ORDERED: MEASLES, MUMPS, AND RUBELLA 1 VIAL SQVAC PRN (11:25)
[2024-01-13] MEDS: KETOROLAC 30 MG/ML VIAL IM/IVP SCH (12:01)
[2024-01-13] MEDS: OXYTOCIN/0.9 % SODIUM CHLORIDE 500 ML IV SCH (16:24)
[2024-01-14 06:30] LABS: BASOPHILS % (AUTO) 0.3 % (0.0-2.0); EOSINOPHILS % (AUTO) 0.1 % (0.0-4.0); HEMOGLOBIN 12.1 g/dL (12.0-16.0); LYMPHOCYTES # (AUTO) 2.9 K/uL (2.5-16.5); LYMPHOCYTES % (AUTO) 24.1 % (20.5-51.1); MEAN CORPUSCULAR HEMOGLOBIN 32 pg (27-31); MEAN CORPUSCULAR HGB CONC 35 g/dL (33-37); MONOCYTES # (AUTO) 0.5 K/uL (0.8-1.0); MONOCYTES % (AUTO) 4.4 % (1.7-9.3); NEUTROPHILS # (AUTO) 8.6 K/uL (1.8-7.7); NEUTROPHILS % (AUTO) 71.1 % (42.2-75.2); PLATELET COUNT (AUTO) 196 K/uL (140-450); RED BLOOD CELL COUNT(AUTO) 3.72 MIL/uL (4.20-5.40); RED CELL DISTRIBUTION WIDTH 14.2 % (11.6-13.7); WHITE BLOOD COUNT (AUTO) 12.1 K/uL (4.8-10.8)
[2024-01-14] MEDS: IBUPROFEN 800 MG TAB PO PRN (13:33)
[2024-01-14] MEDS: oxyCODONE/APAP 5/325 MG 1 TAB TAB PO PRN (23:57)
[2024-01-15] MEDS ORDERED: bisacodyL 5 MG TABEC PO PRN (01:10)
[2024-01-15] MEDS: oxyCODONE/APAP 5/325 MG 1 TAB TAB PO PRN (04:33)
[2024-01-15] MEDS: NIFEdipine 60 MG TABER PO SCH (10:27)
[2024-01-15] MEDS ORDERED: ONDANSETRON 4 MG TAB PO PRN (13:05)
[2024-01-15] MEDS: ONDANSETRON 4 MG ODT PO PRN (14:01)
[2024-01-15] MEDS: APAP/BUTAL/CAFF 325/50/40 MG 1 TAB PO PRN (14:37)
[2024-01-15] MEDS: IBUPROFEN 800 MG TAB PO SCH (18:07)
[2024-01-16] MEDS ORDERED: IBUP-2217 PO (13:43)
[2024-01-16] MEDS ORDERED: SIME80TA41 PO (13:43)
[2024-01-16] MEDS ORDERED: LISI5TAB18 PO (13:44)
== END 2024-01-16 15:00 | disposition home or self-care (01) | DRG 540 ==
LOC: MLD 19:59 → OBSVTOIN 22:20 → MFCC 01-14 09:45
PROVIDERS: ADMIT Obstetrics & Gynecology; ATTEND Obstetrics & Gynecology
PROC: 10D00Z1 Extraction of Products of Conception, Low, Open Approach (ICD-10-PCS; principal; 2024-01-16)
DX: O14.94 Unspecified pre-eclampsia, complicating childbirth (principal); O34.211 Maternal care for low transverse scar from previous cesarean delivery; Z3A.36 36 weeks gestation of pregnancy; Z37.0 Single live birth
CPT/HCPCS: 36415; 51702; 80053; 81001; 82570; 82948; 83735; 84550; 85025; 85384; 85610; 85730; 86592; 86886; 86900; 86901; 87086; J0690; J1885; J2270; J2590; J3475; J3490; J7060; J7120; Q0162

== ENCOUNTER 2024-04-05 06:41 | Day surgery (SDC) | payer OTHER ==
[~2024-04-05] VITALS: Ht 144.8 cm; Wt 74.4 kg
[~2024-04-05 06:41] MED LIST changes: +IBUP-2217 PO; +LISI5TAB18 PO; +SIME80TA41 PO
[2024-04-05 07:18] LABS: BASOPHILS % (AUTO) 0.5 % (0.0-2.0); EOSINOPHILS # (AUTO) 0.1 K/uL (0-0.4); EOSINOPHILS % (AUTO) 0.9 % (0.0-4.0); HEMATOCRIT 37.4 % (36-48); HEMOGLOBIN 12.5 g/dL (12.0-16.0); LYMPHOCYTES # (AUTO) 3.6 K/uL (2.5-16.5); LYMPHOCYTES % (AUTO) 43.5 % (20.5-51.1); MEAN CORPUSCULAR HEMOGLOBIN 29 pg (27-31); MEAN CORPUSCULAR HGB CONC 33 g/dL (33-37); MEAN CORPUSCULAR VOLUME 87.8 fL (80-94); MONOCYTES # (AUTO) 0.5 K/uL (0.8-1.0); MONOCYTES % (AUTO) 5.7 % (1.7-9.3); NEUTROPHILS # (AUTO) 4.1 K/uL (1.8-7.7); NEUTROPHILS % (AUTO) 49.4 % (42.2-75.2); PLATELET COUNT (AUTO) 283 K/uL (140-450); RED BLOOD CELL COUNT(AUTO) 4.26 MIL/uL (4.20-5.40); RED CELL DISTRIBUTION WIDTH 14.1 % (11.6-13.7); WHITE BLOOD COUNT (AUTO) 8.2 K/uL (4.8-10.8)
[2024-04-05 07:35] LABS: ALBUMIN 3.4 g/dL (3.4-5.0); ANION GAP 13.9 (8-16); CALCIUM 8.7 mg/dL (8.5-10.1); CARBON DIOXIDE 25.1 mmol/L (21-32); CREATININE 0.7 mg/dL (0.6-1.3); TOTAL BILIRUBIN 0.3 mg/dL (0.0-1.0); TOTAL PROTEIN, SERUM 7.3 g/dL (6.4-8.2)
[2024-04-05] MEDS ORDERED: ceFAZolin 2,000 MG VIAL ONE (09:05)
[2024-04-05] MEDS ORDERED: SUCCINYLCHOLINE CHLORIDE 200 MG/10 ML VIAL IVP ONE (10:33)
[2024-04-05] MEDS ORDERED: PROPOFOL 200 MG/20 ML VIAL IV ONE (10:33)
[2024-04-05] MEDS ORDERED: GLYCOPYRROLATE 0.2 MG/ML VIAL ONE (10:33)
[2024-04-05] MEDS ORDERED: ROCURONIUM 50 MG/5 ML VIAL IV ONE (10:33)
[2024-04-05] MEDS ORDERED: NEOSTIGMINE 1:1000 10 MG/10 ML VIAL ONE (10:33)
[2024-04-05] MEDS ORDERED: ONDANSETRON 4 MG/2 ML VIAL ONE (10:33)
[2024-04-05] MEDS ORDERED: DEXAMETHASONE 4 MG/ML VIAL ONE (10:33)
[2024-04-05] MEDS ORDERED: fentaNYL citrate 0.05 MG/ML VIAL ONE (10:33)
[2024-04-05] MEDS ORDERED: MIDAZOLAM 2 MG/2 ML VIAL ONE (10:33)
[2024-04-05] MEDS ORDERED: KETOROLAC 30 MG/ML VIAL ONE (10:33)
[2024-04-05] MEDS: BUPIVACAINE-MPF 0.25% 30 ML VIAL INJ ONE (10:52)
[2024-04-05] MEDS: LIDOCAINE/EPI 1% 1:100000 20 ML VIAL INJ ONE (10:52)
[2024-04-05] MEDS ORDERED: ONDANSETRON 4 MG/2 ML VIAL IVP PRN (11:30)
[2024-04-05] MEDS: HYDROmorphone 1 MG/ML AMP IVP PRN (11:41)
[2024-04-05] MEDS ORDERED: HYDROmorphone PFS 2 MG/ML SYR ONE (11:44)
[2024-04-05] MEDS ORDERED: IBUPROFEN 600 MG TAB PO SCH (12:00)
== END 2024-04-05 14:06 | disposition home or self-care (01) ==
LOC: MOR 06:41 → MMU 06:46 → MOR 14:06
PROVIDERS: ATTEND Obstetrics & Gynecology
DX: Z30.2 Encounter for sterilization (principal); Z98.891 History of uterine scar from previous surgery; Z90.49 Acquired absence of other specified parts of digestive tract; Z98.890 Other specified postprocedural states
CPT/HCPCS: 36415; 58661; 80053; 81025; 85025; 88302; J0330; J1100; J1170; J1885; J2001; J2250; J2405; J2704; J2710; J3010; J3490